=== PATIENT | female | born 1945 | race Caucasian/White ===

== ENCOUNTER 2018-01-20 13:00 | Inpatient (IN) | payer OTHER ==
[2018-01-20] MEDS ORDERED: SYNTHROID100 MCG (13:46)
[2018-01-20] MEDS ORDERED: ATENOLOL50 MG (13:47)
[2018-01-20] MEDS ORDERED: LOSARTAN-HCTZ1 EACH (13:48)
[2018-01-21] MEDS ORDERED: NEURONTIN800 MG PO (16:51)
[2018-01-21] MEDS ORDERED: COLACE100 MG PO (16:51)
[2018-01-21] MEDS ORDERED: AMOX-CLAV 875-1 EACH PO (16:52)
[2018-01-21] MEDS ORDERED: PERCOCET 5-3251 EACH PO (16:53)
[2018-01-21] MEDS ORDERED: CLONAZEPAM1 MG PO (16:53)
== END 2018-01-22 16:58 | DRG 455 ==
LOC: O/R 01-21 04:50 → SURG 01-21 04:50 → SURH 01-21 13:00 → SURG 01-21 18:49
PROVIDERS: Orthopaedic Surgery Orthopaedic Surgery of the Spine
PROC: 0SG0071 Fusion of Lumbar Vertebral Joint with Autologous Tissue Substitute, Posterior Approach, Posterior Column, Open Approach (ICD-10-PCS; 2018-01-21)
PROC: 0SG00AJ Fusion of Lumbar Vertebral Joint with Interbody Fusion Device, Posterior Approach, Anterior Column, Open Approach (ICD-10-PCS; 2018-01-21)
PROC: 0ST20ZZ Resection of Lumbar Vertebral Disc, Open Approach (ICD-10-PCS; 2018-01-21)
PROC: 07DS3ZZ Extraction of Vertebral Bone Marrow, Percutaneous Approach (ICD-10-PCS; 2018-01-21)
PROC: 0SG00A0 Fusion of Lumbar Vertebral Joint with Interbody Fusion Device, Anterior Approach, Anterior Column, Open Approach (ICD-10-PCS; principal; 2018-01-21 15:15)
DX: M48.061 Spinal stenosis, lumbar region without neurogenic claudication (principal); M43.16 Spondylolisthesis, lumbar region; M51.36 Other intervertebral disc degeneration, lumbar region